=== PATIENT | female | born 1960 | race Caucasian/White ===

== ENCOUNTER → 2019-03-25 14:28 | Outpatient (CLI) | payer SELFPAY ==
[2014-02-18 14:44] VITALS: BMI 42.0
[~2019-03-25 14:28] MED LIST: ADIPEX-P37.5 M1 PO; CLARITIN 10 MG10 MG PO; EFFEXOR XR150 MG PO; FLUTICASONE PRO16 GM NS; NEXIUM20 MG PO; NORVASC2.5 MG PO
[2019-03-25 15:01] LABS: ALKALINE PHOSPHATASE 118 U/L (46-116); ALT (SGPT) 52 U/L (10-68); BILIRUBIN - TOTAL 0.47 mg/dL (0.2-1.3); CALC OSMOLALITY 277 mosm/kg (275-300); CALCIUM 8.5 mg/dL (8.5-10.1); CARBON DIOXIDE 30.8 mmol/L (21.0-32.0); CHLORIDE - SERUM 104 mmol/L (98-107); CREATININE - SERUM 0.7 mg/dL (0.6-1.3); GLUCOSE 112 mg/dL (74-106); POTASSIUM - SERUM 4.1 mmol/L (3.5-5.1); PROTEIN - SERUM 8.3 g/dL (6.4-8.2); SODIUM 140 mmol/L (136-145); UREA NITROGEN 8 mg/dL (7-18); eGFR NON AFRICAN AMERICAN > 90 mL/min (90-120)
== END | disposition home or self-care (01) ==
LOC: D.LABREF 14:28
PROVIDERS: ATTEND Pediatrics
DX: R53.83 Other fatigue (principal)

== ENCOUNTER 2020-03-03 13:30 | Outpatient (CLI) | payer OTHER ==
[2014-02-18 14:44] VITALS: BMI 42.0
== END 2020-03-03 16:00 | disposition home or self-care (01) ==
LOC: D.MAMMO 13:30
PROVIDERS: ATTEND Family Medicine
DX: Z12.31 Encounter for screening mammogram for malignant neoplasm of breast (principal)